=== PATIENT | female | born 1995 ===

== ENCOUNTER 2017-12-01 12:04 | Emergency (ER) | payer OTHER ==
[2017-12-01 14:42] VITALS: BMI 27.3
--- NOTE | 2017-12-01 16:06 | OBHP ---
Datetime: 12/01/2017 13:20 IP Adm Impression: No Active Labor; Intact Membranes IP Admit Plan: Observation/Evaluation Admit Comment, IP Provider: Pt is a 21 yo on 30.5wk with no sig PMH present to [facility] due to abdo jefferson pain. Pt state pain started in morning, on RLQ radiate to left constant, and it exacerbated by moving the right arm, and aliviated by lying on her Left side. Pt denies having any trauma or fall, she state that baby is moving and have not witnessed any changes, She denies vaginal bleeding/loss of fluid, or contraction at moment. Pt denies Fever, chills, chest pain, diarrhea, constipation, dysuri a or polyuria. provider: Maria R allergy: none Med: , iron PMH: none OBGYN: Every 28 days, regular, 4 days, LMP may 07 2017 PSH: none Social : denies smoke, drink or drug use. ROS: Pt denies Dizziness, headache, blurry vision, CP, SOB, NVDC, burning on urination Assessment: Pt is a 21 yo on 30.5wk with no sig PMH present to [facility] due to abdominal pain, Wi ll evaluate for UTI. Pt is sleeping comfortable at moment, no acute distress Plan F/U UA Observe pt for exacerbation of pain monitor Vitals Pt seen and examined with Dr. Coyle Pt Note writen by Dr. Rocha PGY 1 The patient was seen with the resident I agree with the note Pelvic Type - PN: Not Done Extremities - PN: Normal Abdomen - PN: Normal Back - PN: Not Done Breast - PN: Not Done Lungs - PN: Normal Heart - PN: Normal Thyroid - PN: Not Done Neurologic - PN: Not Done HEENT - PN: Normal General - PN: Normal FHR - Baseline A Provider: 150 Comments, ACOG Physical Exam: Pt is lying comfortable on left side, with no acute distress Heart: s1 s2 heard no murmur or extra heart sound Lung: clear in all quadrant Abdomen: No lesion noted, BS+, tender on RLQ, No rebound tenderness, Jones sign -. IP Hx Assessment: The History has been Reviewed and is Current EGA AdmitDate IP: 30.5 Vital Signs Provider: Reviewed; Within Normal Limits IP Chief Complaint: Maternal discomfort NICHD Variability Prov Fetus A: Marked >25bpm NICHD Accel Fetus A IP Provider: 10X10 FHR Category Provider Fetus A: Category I Genitourinary Exam: Not Done DTRs - PN: Not Done
[2017-12-01 16:33] LABS: SQUAMOUS EPITHIAL 8 /hpf (0-5); URINE BILIRUBIN NEGATIVE (NEGATIVE); URINE BLOOD NEGATIVE (NEGATIVE); URINE CLARITY CLEAR (Clear); URINE COLOR STRAW (YELLOW); URINE GLUCOSE (UA) NEG (Normal); URINE LEUKOCYTE ESTERASE LARGE Leu/uL (Negative); URINE PROTEIN NEGATIVE (NEGATIVE); URINE UROBILINOGEN 0.2-1.0 mg/dL (0.2-1.0)
[2017-12-01 21:35] VITALS: BP 117/70; PULSE 87; RESP 18; TEMP 98.1; O2SAT 100
== END 2017-12-01 17:15 | disposition home or self-care (01) ==
LOC: H.EROB2 12:04
DX: O26.93 Pregnancy related conditions, unspecified, third trimester (principal); R10.2 Pelvic and perineal pain; Z3A.30 30 weeks gestation of pregnancy

== ENCOUNTER 2018-01-28 02:55 | Inpatient (IN) | payer OTHER ==
[2018-01-28 03:16] VITALS: BMI 29.2
[2018-01-28] MEDS ORDERED: Lactated Ringer's 1,000 ML IV ONE (03:42)
[2018-01-28 04:06] LABS: BASO % 0.2 % (0.0-2.0); EOS % 0.3 % (0.0-4.0); HEMOGLOBIN 13.2 g/dL (12.0-16.0); LYMPH # 1.3 K/uL (1.0-4.3); LYMPH % 7.8 % (20.0-40.0); MEAN CELL VOLUME 90.2 fl (81.0-99.0); MEAN CORPUSCULAR HEMOGLOBIN 30.5 pg (27.0-31.0); MEAN CORPUSCULAR HGB CONC 33.9 g/dL (33.0-37.0); MEAN PLATELET VOLUME 9.1 fl (7.2-11.7); MONO # 0.6 K/uL (0.0-0.8); MONO % 3.8 % (0.0-10.0); NEUT # 14.4 K/uL (1.8-7.0); NEUT % 87.9 % (50.0-75.0); NRBC % 0.1 % (0.0-0.0); PLATELET COUNT 329 K/uL (130-400); RBC 4.32 Mil/uL (3.80-5.20); RED CELL DISTRIBUTION WIDTH 12.8 % (11.5-14.5); WHITE BLOOD COUNT 16.3 K/uL (4.8-10.8)
[2018-01-28] MEDS ORDERED: Fentanyl/Bupivacaine HCl 250 ML EPI ONE (04:38)
[2018-01-28] MEDS: Lactated Ringer's 1,000 ML IV SCH ×2 (04:40→10:30)
[2018-01-28] MEDS ORDERED: Penicillin G 5 Million Unit Vial IVPB ONE ×2 (05:34→09:54)
[2018-01-28 06:14] LABS: ANISOCYTOSIS SLIGHT; LYMPHOCYTE 10 % (20-50); MONOCYTE 4 % (0-10); NEUTROPHIL 86 % (42-75); OVALOCYTES MODERATE; PLATELET ESTIMATE NORMAL (NORMAL); TOTAL CELLS COUNTED 100
[2018-01-28 06:15] LABS: LARGE PLATELETS PRESENT; MICROCYTOSIS SLIGHT
--- NOTE | 2018-01-28 07:06 | OBADHP ---
Datetime: 01/28/2018 04:02 Admit Comment, IP Provider: 22 y/o , 39.0 wks based on 1st trimester US with ANDRY 02/04/18 present s to [facility] with CTx. Contractions started 1Am today, regular, painful with lower abdominal pressure Q 1-2 mins. Patient also reports watery discharge without vaginal bleeding. Endorses good movemen ts. Denies any fever, chills, CP, SOB, dysuira, headache or dizziness. PNC: [facility] course: Uneventlful except for anemia, records reviewed. GBS +, HIV neg, RPR neg, HbsAg neg, Rubella immune, A+ antibody negative PMHx: Childhood asthma PSHx: Denies Allergies: NKDA SocialHx: Denies alcohol/tobacco/drugs F/H: Non contributory Medications: PNVs, Iron tabs PE: General: Distress w/contractions Chest: RRR, S1S2 present Lungs: CTA B/L Abdomen: Gravid, NT Ext: No pedal edema, no calf tenderness SSE: No pooling, Neg nitrazine SVE: 2/50%/-1, No VB A/P: 22 y/o , 39.0 wks based on 1st trimester US with ANDRY 02/04/18 presents to [facility] with CTx. - EFM and toco monitoring - cervix 2/50%/-1 - GBS + - admit to unit - Penicillin G 5 million unit followed by 2.5 million unit - Epidural for anesthesia - LR @ 999 and 125 ml/hr - Monitor for cervical change - CBC and type and screen Case discussed with attending Dick Rodriguez, PGY1 Pelvic Type - PN: Not Done Extremities - PN: Normal Abdomen - PN: Normal Back - PN: Normal Breast - PN: Not Done Lungs - PN: Normal Heart - PN: Normal Thyroid - PN: Not Done Neurologic - PN: Normal HEENT - PN: Normal General - PN: Normal FHR - Baseline A Provider: 140 Membranes, Provider: Intact Contraction Comments Provider: regular Comments, ACOG Physical Exam: General: Distress w/contractions Chest: RRR, S1S2 present Lungs: CTA B/L Abdomen: Gravid, NT Ext: No pedal edema, no calf tenderness SSE: No pooling, Neg nitrazine SVE: 2/50%/-1, No VB IP Hx Assessment: The History has been Reviewed and is Current Vital Signs Provider: Reviewed IP Chief Complaint: Uterine contractions; Suspected ruptured membranes NICHD Variability Prov Fetus A: Moderate 6-25bpm NICHD Accel Fetus A IP Provider: 15X15 FHR Category Provider Fetus A: Category I NICHD Decel Fetus A IP Provider: None Dilatation, Provider: 2 Effacement, Provider: 50 Station, Provider: -1 Genitourinary Exam: Normal DTRs - PN: Not Done EGA AdmitDate IP: 39.0 IP Adm Impression: Term, intrauterine IP Admit Plan: Admit to unit; Initiate labor protocol Datetime: 01/28/2018 03:35 Pool Provider: Negative Nitrazine Provider: Negative
[2018-01-28] MEDS ORDERED: Oxytocin 30 UNIT 30 UNITS/500 ML BAG IV ONE ×3 (08:06→14:55)
[2018-01-28] MEDS ORDERED: ceFAZolin IV 2 gm in Dextrose 2 GM/50 ML BAG IVPB ONE (10:21)
[2018-01-28] MEDS ORDERED: OXYTOCIN/0.9 % NS 20 UNIT/1,000 ML BAG IV ONE (12:12)
[2018-01-28] MEDS ORDERED: OXYTOCIN/0.9 % NS 20 UNIT/1,000 ML BAG IV SCH (13:45)
[2018-01-28] MEDS ORDERED: Oxycodone/Acetaminophen 5/325 mg Tab PO PRN ×2 (14:55→15:15)
[2018-01-28] MEDS ORDERED: Benzocaine/Menthol SPRAY TOP PRN ×2 (14:55→15:15)
[2018-01-28] MEDS ORDERED: Influenza Vaccine 60 MCG/0.5 ML SYR (3 yr & up) IM ONE (19:30)
[2018-01-28] MEDS ORDERED: Pneumococcal 23-Valent Vaccine IM ONE (19:31)
[2018-01-29 06:22] LABS: BASO % 0.3 % (0.0-2.0); EOS # 0.1 K/uL (0.0-0.7); EOS % 0.9 % (0.0-4.0); HEMOGLOBIN 10.4 g/dL (12.0-16.0); LYMPH # 1.9 K/uL (1.0-4.3); LYMPH % 15.7 % (20.0-40.0); MEAN CELL VOLUME 90.8 fl (81.0-99.0); MEAN CORPUSCULAR HEMOGLOBIN 30.7 pg (27.0-31.0); MEAN CORPUSCULAR HGB CONC 33.8 g/dL (33.0-37.0); MEAN PLATELET VOLUME 9.4 fl (7.2-11.7); MONO % 8.1 % (0.0-10.0); NEUT # 9.2 K/uL (1.8-7.0); RBC 3.39 Mil/uL (3.80-5.20); WHITE BLOOD COUNT 12.2 K/uL (4.8-10.8)
[2018-01-29] MEDS ORDERED: Pneumococcal 23-Valent Vaccine IM ONE (09:00)
--- NOTE | 2018-01-30 10:57 | OBPPN ---
Datetime: 01/30/2018 07:00 PP Pain Prov: Within normal limits PP Nausea Prov: Denies PP Flatus Prov: Yes PP BM Prov: Yes PP Breasts Prov: Not Done PP Heart Prov: Normal PP Lungs Prov: Normal PP Abdomen/Uterus Prov: Normal PP Lochia Prov: Normal PP Vulva/Perineum Prov: Not Done PP CVA Tenderness Prov: Normal PP Extremities Prov: Normal PP C/S Incision Prov: Not Applicable PP Progress Prov: Normal PP Impression Prov: Normal progression PP Plan Prov: Discharge PP Progress Note Prov: PPD S: 22 yo s/p NVD on 01/28/2018 at 12:54. Pt. is seen and examined at bedside this AM. No significant overnight events. Pt reports occasional abdominal pain, but well controlled with pain med s. Pt is ambulating without any difficulties. Breast feeding baby. Tolerating PO diet. Lochia is nabor lar to light menses in volume. Voiding freely, bowel movement, and passing gas per rectum. Denies fev er, diarrhea, nausea, vomiting, chest pain, dyspnea, and dizziness. O: VS: stable GEN: NAD Cardio: S1S2, no M/G/R Resp: clear breath sounds b/l Abdomen: BS+, NT, Uterus is firm and at the level of the umbilicus. EXT: No edema, calves nontender NEURO/PSYCHI: AAOx3, no grossly focal deficit, preserved affect and mood. Assessment/Plan: 22 yo s/p NVD on 01/28/2018 at 12:54. Pt remains afebrile, tolerating pa in with medication, tolerating PO intake, doing well on PPD2. OOB with caution SCDs for DVT prophylaxis, pt ambulating Ibuprofen 600mg for pain. Encourage and ambulating CBC post-delivery: 10.4/30.8 Anticipated d/c to home, 01/30/2018. Case dw OB attending --- Sylvain Najera MD PGY-2 Attending Note: Patient was seen and discussed with resident and I agree with the above assessment . IP PP Procedures: None Vital Signs Provider PP: Reviewed; Within Normal Limits
--- NOTE | 2018-01-30 10:59 | OBDCSUM ---
Datetime: 01/30/2018 07:00 Discharged to, Provider: Home Follow up at, Provider: OB 6 wks post Disch Instr Activity: Normal activity; May Shower Disch Instr Diet: Regular Discharge Instructions, Provider: Routine instructions given Discharge Diagnosis, Provider: Term Delivered Discharge Time: 01/30/2018 10:00 Follow up in weeks, Provider: 6 wks Disch Referrals: None Contraception discussed, Prov: Yes Disch Activity Restrictions: No exercising; No lifting; No driving; No sexual activity; Nothing in v agina - [place], tampons, douche Discharge Comment, Provider: Discharge Summary DOA: 01/28/2018 EGA: 39.0 Diagnosis: NVD Term Risk factors: GBS + Summary of : 22 yo F L_D summary DOL: 01/28/2018 at 12:54 NVD NB: M : 9/9 Weight: 3150g PP summary No serious complications during PP. 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
[2018-01-30 17:59] VITALS: BP 133/85; PULSE 98; RESP 18; TEMP 98.1; O2SAT 100
== END 2018-01-30 12:30 | disposition home or self-care (01) | DRG 373 ==
LOC: H.EROB2 02:55 → H.L&D 03:42 → H.OB/GYN 15:00
PROVIDERS: ADMIT Obstetrics & Gynecology; ATTEND Obstetrics & Gynecology
PROC: 10E0XZZ Delivery of Products of Conception, External Approach (ICD-10-PCS; principal; 2018-01-28)
PROC: 4A1HXCZ Monitoring of Products of Conception, Cardiac Rate, External Approach (ICD-10-PCS; 2018-01-28)
PROC: 3E0234Z Introduction of Serum, Toxoid and Vaccine into Muscle, Percutaneous Approach (ICD-10-PCS; 2018-01-28)
PROC: 3E0234Z Introduction of Serum, Toxoid and Vaccine into Muscle, Percutaneous Approach (ICD-10-PCS; 2018-01-29)
DX: O99.824 Streptococcus B carrier state complicating childbirth (principal); Z3A.39 39 weeks gestation of pregnancy; Z37.0 Single live birth; Z23 Encounter for immunization